=== PATIENT | male | born 1970 | race Caucasian/White ===

== ENCOUNTER 2020-09-05 14:54 | Emergency (ER) | payer SELFPAY ==
[2020-09-05 17:07] VITALS: BP 146/90; PULSE 72; RESP 14; TEMP 37.3; O2SAT 98
--- NOTE | 2020-09-05 17:19 | US_ITS ---
EXAMINATION: US VENOUS ULTRASOUND WITH DOPPLER LOWER EXTREMITY, BILATERAL CLINICAL INFORMATION: Edema COMPARISON: None TECHNIQUE: Ultrasound of the deep veins is performed from the hip to the calf with compression sonography and color and pulse Doppler assessment. Spectral analysis with color-flow imaging is performed. FINDINGS: RIGHT: There is normal venous compression and respiratory variation and augmented flow. The visualized common femoral vein, superficial femoral vein, profunda femoral vein, popliteal vein, and the trifurcation region shows no evidence of deep venous thrombosis. There is no significant popliteal fossa cyst. LEFT: There is normal venous compression and respiratory variation and augmented flow. The visualized common femoral vein, superficial femoral vein, profunda femoral vein, popliteal vein, and the trifurcation region shows no evidence of deep venous thrombosis. There is no significant popliteal fossa cyst. If the patient's symptoms persist, followup ultrasound in 5 days 7 days might be of value to exclude proximal propagation from a non-visualized calf vein. There are morphologically normal-appearing lymph nodes with fatty luis enrique in the groin bilaterally. IMPRESSION: No DVT demonstrated in the bilateral lower extremity.
--- NOTE | 2020-09-05 17:19 | ECG_ITS ---
Test Reason : EXTREMETY PROBLEM Blood Pressure : / mmHG Vent. Rate : 069 BPM Atrial Rate : 069 BPM P-R Int : 138 ms QRS Dur : 086 ms QT Int : 356 ms P-R-T Axes : 035 034 -21 degrees QTc Int : 381 ms Normal sinus rhythm Nonspecific T wave abnormality Abnormal ECG No previous ECGs available Referred By: Babita Villarreal Electronically Signed By:TANMAY MALDONADO MD
--- NOTE | 2020-09-05 17:19 | XR_ITS ---
EXAMINATION: XR CHEST CLINICAL INFORMATION: Bilateral lower extremity edema. Chronic shortness of breath and asthma. COMPARISON: None TECHNIQUE: 2 views of the chest were obtained. FINDINGS: No significant abnormality is noted involving the heart, lungs, mediastinum, bony thorax or soft tissues. IMPRESSION: Unremarkable examination.
[2020-09-05 17:52] VITALS: BP 149/89; PULSE 73; RESP 18; TEMP 37.1; O2SAT 98; BMI 31.0
--- NOTE | 2020-09-05 18:02 | PC.NURSE ---
pt resting in the stretcher, alert and oriented, skin appropriate for ethnicity, respirations even and unlabored. pt reports bilateral lower extremities swelling on and off for a couple of weeks, also reports tingling/pins and needles. swelling improves after rest and elevation. very minim swelling at this time, about +1, vs stable.
[2020-09-05 18:12] LABS: MANUAL DIFF FLAG NO
[2020-09-05 18:22] LABS: Basophils Absolute Auto 0.1 X10*3/uL (0.0-0.2); Basophils Percent Auto 0.6 % (0-2); Eosinophils Absolute Auto 0.2 X10*3/uL (0.0-0.4); Hematocrit 43.5 % (42-52); Hemoglobin 15.2 g/dl (14.0-18.0); Imm Gran Abs Auto 0.07 X10*3/uL (0.00-0.03); Imm Gran Pct Auto 0.9 % (0.0-0.4); Lymphocytes Absolute Auto 2.5 X10*3/uL (1.2-4.9); Lymphocytes Percent Auto 30.9 % (20-40); Mean Corpuscular HGB Conc 34.9 g/dl (31.0-36.0); Mean Corpuscular Hemoglobin 32.3 pg (27.0-33.0); Mean Corpuscular Volume 92.6 fL (80-98); Neutrophils Absolute Auto 4.2 X10*3/uL (2.0-8.3); Neutrophils Percent Auto 52.6 % (45-73); Platelet Count 211 X10*3/uL (160-400); Red Cell Distribution Width 13.7 % (11.0-16.0)
[2020-09-05 18:38] LABS: Alanine Aminotransferase 92 U/L (0-40); Albumin Level 4.2 g/dL (3.5-5.0); Alkaline Phosphatase 74 U/L (39-117); Anion Gap 11 (12-20); Aspartate Amino Transferase 59 U/L (5-37); Bilirubin Direct 0.2 mg/dL (0.0-0.5); Bilirubin Total 0.4 mg/dL (0.0-1.0); Blood Urea Nitrogen 17 mg/dL (9-16); Calcium 8.6 mg/dL (8.4-10.2); Carbon Dioxide 25 mmol/L (22-29); Chloride 108 mmol/L (96-108); Creatinine Clr Calc Pharmacy 111.8; Estimated Glomerular Filt Rate > 60; Glucose Random 81 mg/dL (60-115); Magnesium 2.2 mg/dL (1.6-2.6); Potassium 3.9 mmol/l (3.3-5.1); Sodium 140 mmol/L (135-145); Total Protein 7.1 g/dL (6.5-8.0)
[2020-09-05 18:42] LABS: B Type Natriuretic Peptide < 10 pg/mL (<100); Troponin-I High Sensitivity < 3.5 ng/L (<3.5-35.0)
--- NOTE | 2020-09-05 18:53 | ED_ITS ---
HPI - General Adult General Chief complaint: Extremity Injury, Lower <WILY Harden - Last Filed: 09/05/20 19:03> Stated complaint: leg swelling <WILY Harden - Last Filed: 09/05/20 19:03> Time Seen by Provider: 09/05/20 17:18 <WILY Harden - Last Filed: 09/05/20 19:03> Source: patient <WILY Harden - Last Filed: 09/05/20 19:03> Mode of arrival: ambulatory <WILY Harden - Last Filed: 09/05/20 19:03> History of Present Illness HPI narrative: 49yo male with a past medical history of asthma, anxiety, ADD c/o worsening bilateral lower extremity edema x1 week. Reports this is an acute on chronic issue, when elevate legs symptoms improve. Reports chronic SOB due to asthma, and intermittent CP, denies CP at present. Denies fever, cough, worsening SOB, history of clots, recent travel <WILY Harden - Last Filed: 09/05/20 19:03> Onset (ago): week(s) <WILY Harden - Last Filed: 09/05/20 19:03> Related Data Allergies/adverse reactions: Allergies Allergy/AdvReac Type Severity Reaction Status Date / Time No Known Allergies Allergy Verified 09/05/20 17:19 <WILY Harden - Last Filed: 09/05/20 19:03> Review of Systems Review of Systems: Constitutional: No Weight loss, No Fever, No Chills Cardiovascular: +intermittent Chest Pain, + chronic SOB, + Edema Respiratory: No Cough, No Sputum, No Wheezing, No Smoke Exposure, No Dyspnea Gastrointestinal: No Nausea, No Vomiting, No Diarrhea, No Abdominal pain Skin: No Skin Lesions, No rash Neuro: No Weakness, No Numbness, No Paresthesias <WILY Harden - Last Filed: 09/05/20 19:03> PMF Past Medical History Attestation statement: The following information was validated with the patient. <WILY Harden - Last Filed: 09/05/20 19:03> Source: nursing notes reviewed <WILY Harden - Last Filed: 09/05/20 19:03> Medical History: Medical History (Updated 09/06/20 @ 00:01 by Ken Goddard) ADD (attention deficit disorder) Anxiety Asthma <WILY Harden - Last Filed: 09/05/20 19:03> Social History Social History: Social History Smoking Status: Never smoker Use of substances other than those prescribed or required for medical reasons: No Advance Directives: No Advance Directives Information Provided: Yes <WILY Harden - Last Filed: 09/05/20 19:03> Physical Exam Vital Signs: Vital Signs: Vital Signs Temp Pulse Resp BP Pulse Ox 09/05/20 17:52 98.8 F 73 18 149/89 H 98 09/05/20 17:07 99.1 F 72 14 146/90 H 98 Body Mass Index 31.0 <WILY Harden - Last Filed: 09/05/20 19:03> Vital Signs: Vital Signs Temp Pulse Resp BP Pulse Ox 09/05/20 17:52 98.8 F 73 18 149/89 H 98 09/05/20 17:07 99.1 F 72 14 146/90 H 98 Body Mass Index 31.0 <Ino Saenz MD - Last Filed: 09/09/20 14:43> Const: General: cooperative and healthy appearing <WILY Harden - Last Filed: 09/05/20 19:03> Orientation/consciousness: patient oriented x3 <WILY Harden - Last Filed: 09/05/20 19:03> Limitations: no limitations <WILY Harden - Last Filed: 09/05/20 19:03> HENMT: Head: Yes normal to inspection <WILY Harden - Last Filed: 09/05/20 19:03> Ears: hearing grossly normal bilaterally <WILY Harden - Last Filed: 09/05/20 19:03> General nose exam: Normal external nose present <WILY Harden - Last Filed: 09/05/20 19:03> Face and sinus: Yes normal facial exam <WILY Harden - Last Filed: 09/05/20 19:03> Eyes: General: appearance normal, both eyes and all related structures <WILY Harden - Last Filed: 09/05/20 19:03> EOM: EOMs intact bilaterally <Babita Villarreal [place] - Last Filed: 09/05/20 19:03> Neck: Neck: Yes normal visual inspection <Babita Villarreal [place] - Last Filed: 09/05/20 19:03> Resp: Effort & Inspection: normal respiratory effort <Babita Villarreal [place] - Last Filed: 09/05/20 19:03> Auscultation: clear to auscultation bilaterally, no crackles, no rales and no rhonchi <Babita Villarreal [place] - Last Filed: 09/05/20 19:03> Cardio: Rate: regular rate <Babita Villarreal [place] - Last Filed: 09/05/20 19:03> Heart sounds: S1 normal heart sound present and S2 normal heart sound present <Babita Villarreal [place] - Last Filed: 09/05/20 19:03> GI: Inspection: Yes normal to inspection <Babita Villarreal [place] - Last Filed: 09/05/20 19:03> Palpation (GI): Soft to palpation, nontender, no guarding and not rigid <Babita Villarreal [place] - Last Filed: 09/05/20 19:03> Skin: Rashes: no rashes <Babita Villarreal [place] - Last Filed: 09/05/20 19:03> Wounds: no wounds <Babita Villarreal [place] - Last Filed: 09/05/20 19:03> Neuro: General: patient oriented x3 <Babita Villarreal [place] - Last Filed: 09/05/20 19:03> Gait exam (Neuro): Normal gait present <Babita Villarreal [place] - Last Filed: 09/05/20 19:03> Extrem: General: Yes normal to inspection and Yes edema ( bilateral LE edema > RLE. No calf tenderness) <Babita Villarreal [place] - Last Filed: 09/05/20 19:03> Course Course Course Narrative: - AST/ALT elevated, troponin negative, BNP negative -CXR unremarkable, venous duplex without evidence of DVT in the bilateral lower extremities lab and imaging results discussed with patient including worrisome signs and symptoms and strict return precautions. Patient verbalized understanding feel safe for discharge home to follow-up with PCP <WILY Harden - Last Filed: 09/05/20 19:03> I have reviewed the chart <Ino Saenz MD - Last Filed: 09/09/20 14:43> Medical Decision Making MDM Narrative Medical decision making narrative: 49yo male with a past medical history of asthma, anxiety, ADD c/o worsening bilateral lower extremity edema x1 week. On exam VS, NAD/ well-shirlene earing, bilateral LE edema noted greater on the right. No calf tenderness. Concern for CHF vs DVT vs acute on chronic pedal edema. R/o ACS. Low concern for PE plan: EKG, labs, CXR, venous duplex, reassess <WILY Harden - Last Filed: 09/05/20 19:03> Lab Data Result diagrams: : 09/05/20 18:03 09/05/20 18:03 <WILY Harden - Last Filed: 09/05/20 19:03> Labs: Lab Results 09/05/20 09/05/20 09/05/20 Range/Units 18:03 18:03 18:03 WBC 8.0 (4.8-10.8) X10*3/uL RBC 4.70 (4.60-5.80) X10*6/uL Hgb 15.2 (14.0-18.0) g/dl Hct 43.5 (42-52) % MCV 92.6 (80-98) fL MCH 32.3 (27.0-33.0) pg MCHC 34.9 (31.0-36.0) g/dl RDW 13.7 (11.0-16.0) % Plt Count 211 (160-400) X10*3/uL MPV 11.0 (9.4-12.4) fL Immature Gran % (Auto) 0.9 H (0.0-0.4) % Neut % (Auto) 52.6 (45-73) % Lymph % (Auto) 30.9 (20-40) % [place] % (Auto) 13.0 H (2-11) % Eos % (Auto) 2.0 (0-4) % Baso % (Auto) 0.6 (0-2) % Lymph # (Auto) 2.5 (1.2-4.9) X10*3/uL [place] # (Auto) 1.0 (0.1-1.2) X10*3/uL Eos # (Auto) 0.2 (0.0-0.4) X10*3/uL Baso # (Auto) 0.1 (0.0-0.2) X10*3/uL Abs Immat Gran (auto) 0.07 H (0.00-0.03) X10*3/uL Absolute Neuts (auto) 4.2 (2.0-8.3) X10*3/uL Absolute Nucleated RBC 0.000 (0.0-0.012) X10*3/uL Nucleated RBC % (auto) 0.0 (0.0-0.2) /100WBC Hold Blue Top SEE NOTE Sodium 140 (135-145) mmol/L Potassium 3.9 (3.3-5.1) mmol/l Chloride 108 (96-108) mmol/L Carbon Dioxide 25 (22-29) mmol/L Anion Gap 11 L (12-20) BUN 17 H (9-16) mg/dL Creatinine 0.93 (0.5-1.4) mg/dL Estim Creat Clear Calc 111.8 Estimated GFR > 60 Random Glucose 81 (60-115) mg/dL Calcium 8.6 (8.4-10.2) mg/dL Magnesium 2.2 (1.6-2.6) mg/dL Total Bilirubin 0.4 (0.0-1.0) mg/dL Direct Bilirubin 0.2 (0.0-0.5) mg/dL AST 59 H (5-37) U/L ALT 92 H (0-40) U/L Alkaline Phosphatase 74 (39-117) U/L Troponin I High Sens (<3.5-35.0) ng/L B-Natriuretic Peptide (<100) pg/mL Total Protein 7.1 (6.5-8.0) g/dL Albumin 4.2 (3.5-5.0) g/dL 09/05/20 Range/Units 18:03 WBC (4.8-10.8) X10*3/uL RBC (4.60-5.80) X10*6/uL Hgb (14.0-18.0) g/dl Hct (42-52) % MCV (80-98) fL MCH (27.0-33.0) pg MCHC (31.0-36.0) g/dl RDW (11.0-16.0) % Plt Count (160-400) X10*3/uL MPV (9.4-12.4) fL Immature Gran % (Auto) (0.0-0.4) % Neut % (Auto) (45-73) % Lymph % (Auto) (20-40) % [place] % (Auto) (2-11) % Eos % (Auto) (0-4) % Baso % (Auto) (0-2) % Lymph # (Auto) (1.2-4.9) X10*3/uL [place] # (Auto) (0.1-1.2) X10*3/uL Eos # (Auto) (0.0-0.4) X10*3/uL Baso # (Auto) (0.0-0.2) X10*3/uL Abs Immat Gran (auto) (0.00-0.03) X10*3/uL Absolute Neuts (auto) (2.0-8.3) X10*3/uL Absolute Nucleated RBC (0.0-0.012) X10*3/uL Nucleated RBC % (auto) (0.0-0.2) /100WBC Hold Blue Top Sodium (135-145) mmol/L Potassium (3.3-5.1) mmol/l Chloride (96-108) mmol/L Carbon Dioxide (22-29) mmol/L Anion Gap (12-20) BUN (9-16) mg/dL Creatinine (0.5-1.4) mg/dL Estim Creat Clear Calc Estimated GFR Random Glucose (60-115) mg/dL Calcium (8.4-10.2) mg/dL Magnesium (1.6-2.6) mg/dL Total Bilirubin (0.0-1.0) mg/dL Direct Bilirubin (0.0-0.5) mg/dL AST (5-37) U/L ALT (0-40) U/L Alkaline Phosphatase (39-117) U/L Troponin I High Sens < 3.5 (<3.5-35.0) ng/L B-Natriuretic Peptide < 10 (<100) pg/mL Total Protein (6.5-8.0) g/dL Albumin (3.5-5.0) g/dL <WILY Harden - Last Filed: 09/05/20 19:03> Lab Results 09/05/20 09/05/20 09/05/20 Range/Units 18:03 18:03 18:03 WBC 8.0 (4.8-10.8) X10*3/uL RBC 4.70 (4.60-5.80) X10*6/uL Hgb 15.2 (14.0-18.0) g/dl Hct 43.5 (42-52) % MCV 92.6 (80-98) fL MCH 32.3 (27.0-33.0) pg MCHC 34.9 (31.0-36.0) g/dl RDW 13.7 (11.0-16.0) % Plt Count 211 (160-400) X10*3/uL MPV 11.0 (9.4-12.4) fL Immature Gran % (Auto) 0.9 H (0.0-0.4) % Neut % (Auto) 52.6 (45-73) % Lymph % (Auto) 30.9 (20-40) % [place] % (Auto) 13.0 H (2-11) % Eos % (Auto) 2.0 (0-4) % Baso % (Auto) 0.6 (0-2) % Lymph # (Auto) 2.5 (1.2-4.9) X10*3/uL [place] # (Auto) 1.0 (0.1-1.2) X10*3/uL Eos # (Auto) 0.2 (0.0-0.4) X10*3/uL Baso # (Auto) 0.1 (0.0-0.2) X10*3/uL Abs Immat Gran (auto) 0.07 H (0.00-0.03) X10*3/uL Absolute Neuts (auto) 4.2 (2.0-8.3) X10*3/uL Absolute Nucleated RBC 0.000 (0.0-0.012) X10*3/uL Nucleated RBC % (auto) 0.0 (0.0-0.2) /100WBC Hold Blue Top SEE NOTE Sodium 140 (135-145) mmol/L Potassium 3.9 (3.3-5.1) mmol/l Chloride 108 (96-108) mmol/L Carbon Dioxide 25 (22-29) mmol/L Anion Gap 11 L (12-20) BUN 17 H (9-16) mg/dL Creatinine 0.93 (0.5-1.4) mg/dL Estim Creat Clear Calc 111.8 Estimated GFR > 60 Random Glucose 81 (60-115) mg/dL Calcium 8.6 (8.4-10.2) mg/dL Magnesium 2.2 (1.6-2.6) mg/dL Total Bilirubin 0.4 (0.0-1.0) mg/dL Direct Bilirubin 0.2 (0.0-0.5) mg/dL AST 59 H (5-37) U/L ALT 92 H (0-40) U/L Alkaline Phosphatase 74 (39-117) U/L Troponin I High Sens (<3.5-35.0) ng/L B-Natriuretic Peptide (<100) pg/mL Total Protein 7.1 (6.5-8.0) g/dL Albumin 4.2 (3.5-5.0) g/dL 09/05/20 Range/Units 18:03 WBC (4.8-10.8) X10*3/uL RBC (4.60-5.80) X10*6/uL Hgb (14.0-18.0) g/dl Hct (42-52) % MCV (80-98) fL MCH (27.0-33.0) pg MCHC (31.0-36.0) g/dl RDW (11.0-16.0) % Plt Count (160-400) X10*3/uL MPV (9.4-12.4) fL Immature Gran % (Auto) (0.0-0.4) % Neut % (Auto) (45-73) % Lymph % (Auto) (20-40) % [place] % (Auto) (2-11) % Eos % (Auto) (0-4) % Baso % (Auto) (0-2) % Lymph # (Auto) (1.2-4.9) X10*3/uL [place] # (Auto) (0.1-1.2) X10*3/uL Eos # (Auto) (0.0-0.4) X10*3/uL Baso # (Auto) (0.0-0.2) X10*3/uL Abs Immat Gran (auto) (0.00-0.03) X10*3/uL Absolute Neuts (auto) (2.0-8.3) X10*3/uL Absolute Nucleated RBC (0.0-0.012) X10*3/uL Nucleated RBC % (auto) (0.0-0.2) /100WBC Hold Blue Top Sodium (135-145) mmol/L Potassium (3.3-5.1) mmol/l Chloride (96-108) mmol/L Carbon Dioxide (22-29) mmol/L Anion Gap (12-20) BUN (9-16) mg/dL Creatinine (0.5-1.4) mg/dL Estim Creat Clear Calc Estimated GFR Random Glucose (60-115) mg/dL Calcium (8.4-10.2) mg/dL Magnesium (1.6-2.6) mg/dL Total Bilirubin (0.0-1.0) mg/dL Direct Bilirubin (0.0-0.5) mg/dL AST (5-37) U/L ALT (0-40) U/L Alkaline Phosphatase (39-117) U/L Troponin I High Sens < 3.5 (<3.5-35.0) ng/L B-Natriuretic Peptide < 10 (<100) pg/mL Total Protein (6.5-8.0) g/dL Albumin (3.5-5.0) g/dL <Ino Saenz MD - Last Filed: 09/09/20 14:43> ECG Data Attestation: I personally reviewed and interpreted this ECG as follows: <WLIY Harden - Last Filed: 09/05/20 19:03> Prior ECG tracings: not available for review <WILY Harden - Last Filed: 09/05/20 19:03> Interpretation: normal sinus rhythm with inverted Ts in 2, 3, AVF rate of 69 good tracing no priors to compare <WILY Harden - Last Filed: 09/05/20 19:03> Discharge Plan Discharge Clinical Impression: Peripheral edema <WILY Harden - Last Filed: 09/05/20 19:03> Patient Disposition: Home, Self-Care <WILY Harden - Last Filed: 09/05/20 19:03> Instructions: Edema (ED) <WILY Harden - Last Filed: 09/05/20 19:03> Additional Instructions: your blood work and imaging studies were unremarkable today in the ED You need to follow-up with her primary care doctor You should also follow-up with a dermatology physician Elevate feet at home Avoid excessive salt intake / fluid intake If swelling worsens and or your calfs become painful, you develop shortness of breath or chest pain return to the ED <WILY Harden - Last Filed: 09/05/20 19:03> Referrals: ED Physician,Brittany [Physician] - 2 days ( your primary care doctor) Pete Haney MD [Physician] - 5 days <WILY Harden - Last Filed: 09/05/20 19:03> Interventions: ED Discharge Assessment Last Done: 09/05/20 19:30 <WILY Harden - Last Filed: 09/05/20 19:03> Discharge Date/Time: 09/05/20 19:31 <WILY Harden - Last Filed: 09/05/20 19:03>
== END 2020-09-05 19:31 | disposition home or self-care (01) ==
PROVIDERS: Physician Assistant; Emergency Provider Emergency Medicine
DX: R60.0 Localized edema (principal); Z79.899 Other long term (current) drug therapy
CPT/HCPCS: 36415; 71046; 80048; 80076; 83735; 83880; 84484; 85025; 93005; 93970; 99284

== ENCOUNTER → 2020-09-25 09:50 | Outpatient (BNVA) | payer SELFPAY | PROVIDERS: Visit Provider Internal Medicine | DX: R60.0 Localized edema (principal) | CPT/HCPCS: 99212 ==